=== PATIENT | female | born 1990 | race African-American/Black ===

== ENCOUNTER 2019-12-21 07:45 | Inpatient (IN) | payer BC ==
--- NOTE | 2019-12-21 08:50 | HP ---
Past Medical History - Primary Care Physician PCP:: Symone De Anda - Admission Chief Complaint: none History of Present Illness: pt presents for scheduled iol. no complaints. pnc signif for + ontd screen had genetic counseling. declined further chelsey claudiag. had mfm sono w Nl priyanka scan maternal obesity History Source: Patient Limitations to Obtaining History: No Limitations - Past Medical History ...: 2 ...Para: 0 ...Induced : 1 ...EDC by Sono: 12/21/19 - Past Surgical History Hx Myomectomy: No Hx Transabdominal Cerclage: No Additional Surgical History: vtop - Smoking History Have you smoked in the past 12 months: No - Alcohol/Substance Use Hx Alcohol Use: No History of Substance Use: reports: None Home Medications - Allergies Allergies/Adverse Reactions: Allergies Allergy/AdvReac Type Severity Reaction Status Date / Time No Known Allergies Allergy Verified 12/21/19 08:48 - Home Medications Home Medications: Ambulatory Orders Prenat 115/Iron Fum/Folic/Dss [ 19 Tablet] 1 each PO DAILY 12/21/19 Review of Systems Findings/Remarks: see hpi Physical Exam - Maternity Constitutional: Yes: Well Nourished, No Distress, Calm Neck: Yes: Rigid Lungs: Clear to auscultation - Abdominal Exam/OB Number of Fetuses: Single Presentation: Vertex Contractions: Yes Regularity: Irregular Intensity: Unaware Monitor Mode: External Heart Rate (range): 125 Accelerations: Uniform Decelerations: None - Vaginal Exam/OB Vaginal Bleeding: No Speculum Exam: No Dilatation (cm): 1-2 Effacement (%): l/p - Physical Exam Musculoskeletal: Yes: WNL Extremities: Yes: WNL - Labs Lab Results: O pos Rubella: immune vdrl neg hbsag neg hiv neg gc neg chl neg gbs neg Hemorrhage Risk Assessment - Risk Factors Medium Risk Factors: Yes: Obesity (BMI >40) High Risk Factors: Yes: None Risk Score: 1 Risk Level: Medium Risk Problem List - Problems (1) 40 weeks gestation of Problems reviewed: Yes Code(s): Z3A.40 - 40 WEEKS GESTATION OF (2) Postmaturity , 40-42 weeks gestation Problems reviewed: Yes Code(s): O48.0 - POST-TERM Assessment/Plan iup at 40 weeks presents for scheduled iol efw [id number] admit to L&D monitor notify peds of inc risk ONTD of screening test antepartum due to unfavorable cervix, start with cervical ripening / cervidil
[2019-12-21 08:58] LABS: BASO % 0.3 % (0-2.0); EOS % 1.5 % (0-4.5); HEMATOCRIT 30.3 % (32.4-45.2); HEMOGLOBIN 10.6 GM/dL (10.7-15.3); LYMPH % 28.5 % (8-40); MCH 30.1 pg (25.7-33.7); MCHC 34.8 g/dl (32.0-36.0); MEAN CELL VOLUME 86.5 fl (80-96); MEAN PLT VOLUME 7.2 fl (7.5-11.1); MONO % 8.8 % (3.8-10.2); NEUT % 60.9 % (42.8-82.8); PLATELET COUNT 225 K/MM3 (134-434); RBC 3.51 M/mm3 (3.60-5.2); RDW 13.7 % (11.6-15.6); WHITE BLOOD COUNT 7.9 K/mm3 (4.0-10.0)
[2019-12-21 09:05] LABS: INR 0.92 (0.83-1.09); PROTHROMBIN TIME (PATIENT) 10.9 SEC (9.7-13.0)
[2019-12-21 09:08] LABS: ACTIVATED PTT 26.4 SECONDS (25.2-36.5)
[2019-12-21 09:22] LABS: BLOOD UREA NITROGEN 6.6 mg/dL (7-18); CALCIUM 8.8 mg/dL (8.5-10.1); CREATININE 0.8 mg/dL (0.55-1.3); POTASSIUM 3.9 mmol/L (3.5-5.1)
[2019-12-21] MEDS: DEXTROSE 5%-LACTATED RINGERS 1,000 ML IV SCH (09:30)
[2019-12-21 10:07] VITALS: BMI 36.6
[2019-12-21] MEDS ORDERED: DINOPROSTONE 10 MG VAGINAL SUPPOSITORY VG ONE ×2 (10:33→23:05)
--- NOTE | 2019-12-21 23:09 | PN ---
Progress Note (short form) - Note Progress Note: Patient without complaints cervidil #1 removed, cervidil #2 placed FHR 140, moderate variability, positive accelerations, no decelerations, cat1 [place]- q4-8 min VE-- ft/long/posterior anticipate vaginal delivery
[2019-12-22] MEDS ORDERED: BUTORPHANOL TARTRATE 1 MG/ML VIAL IVPB ONE (08:06)
[2019-12-22] MEDS ORDERED: BUTORPHANOL TARTRATE 2 MG/ML VIAL ONE (08:19)
[2019-12-22] MEDS ORDERED: PROMETHAZINE HCL 25 MG/1 ML VIAL ONE (08:19)
[2019-12-22 09:03] LABS: POC NITRAZINE NEG
[2019-12-22] MEDS ORDERED: PROMETHAZINE HCL 25 MG/1 ML VIAL IVPB ONE (09:15)
[2019-12-22] MEDS: DEXTROSE 5%-LACTATED RINGERS 1,000 ML IV SCH (12:00)
--- NOTE | 2019-12-22 12:22 | PN ---
Progress Note (short form) - Note Progress Note: Cervidil #2 removed VE /-1 posterior SROM category 1 tracing desires epidural
[2019-12-22] MEDS ORDERED: PCA PUMP NR ONE ×2 (12:39→22:02)
[2019-12-22] MEDS ORDERED: FENTANYL/BUPIVACAINE/NS/PF - PCEA - 50 ML DISP.SYRIN EP ONE (12:40)
[2019-12-22] MEDS ORDERED: NALOXONE HCL 0.4 MG/ML VIAL IVPUSH PRN (13:22)
[2019-12-22] MEDS ORDERED: BUPIVACAINE HCL/PF 0.25% (2.5MG/ML) 10 ML VIAL ONE (13:27)
[2019-12-22] MEDS ORDERED: FENTANYL/BUPIVACAINE/NS/PF - PCEA - 50 ML DISP.SYRIN EP SCH (13:30)
[2019-12-22] MEDS ORDERED: OXYTOCIN 30 UNITS in 0.9% NS 30 UNIT/500 ML INFUS.BAG IVPB SCH (15:00)
[2019-12-22] MEDS ORDERED: ELECTROLYTE-148 SOLN 1,000 ML IV SCH (15:00)
[2019-12-22] MEDS ORDERED: OXYTOCIN 30 UNITS in 0.9% NS 30 UNIT/500 ML INFUS.BAG IVPB ONE (15:09)
--- NOTE | 2019-12-22 16:08 | PN ---
Progress Note (short form) - Note Progress Note: Unchanged exam at 3pm VE 6/80/-1 posterior SROM category [address] start pitocin infusion
[2019-12-22] MEDS ORDERED: LIDOCAINE HCL 1% PRESERVATIVE FREE - 30ML VIAL ONE (18:15)
[2019-12-22] MEDS ORDERED: OXYTOCIN 20 UNITS in 0.9% NS 20 UNIT/1,000 ML INFUS.BAG IV ONE (18:15)
--- NOTE | 2019-12-22 18:21 | PN ---
Progress Note (short form) - Note Progress Note: VE fully dilated SROM category [address] on pitocin infusion
[2019-12-22] MEDS ORDERED: BENZOCAINE 20% 57 GM BOTTLE TP PRN (20:29)
[2019-12-22] MEDS ORDERED: BENZOCAINE 28 GM HEMORRHOIDAL OINTMENT TP PRN (20:29)
[2019-12-22] MEDS ORDERED: WITCH HAZEL 50% (TUCKS) 40 PAD/JAR PAD TP PRN (20:29)
[2019-12-22] MEDS ORDERED: BISACODYL 10 MG SUPP.RECT RC PRN (20:29)
[2019-12-22] MEDS ORDERED: METHYLERGONOVINE MALEATE 0.2 MG/1 ML AMP IM PRN (20:29)
--- NOTE | 2019-12-22 20:29 | PN ---
Delivery - Delivery Vaginal Delivery: Spontaneous Type of Anesthesia: Epidural Episiotomy/Laceration: Right Mediolateral EBL (cc): 500 (Repair done with 2-0 chromic. Tight nuchal cord.) Delivery, Single - Stages of Labor Placenta: Yes: Spontaneous - Condition of Gender: Female Position: OA - 1 Minute Total Score: 8 5 Minutes Total Score: 9 - Feeding Plan Initial Plan: Exclusive throughout hospitalization
[2019-12-22] MEDS ORDERED: OXYTOCIN 20 UNITS in 0.9% NS 20 UNIT/1,000 ML INFUS.BAG IV SCH (20:30)
[2019-12-22 21:08] LABS: CORD BASE EXCESS -8.6 mmol/L (0-2); CORD PCO2 36.1 mmHg (30-78); CORD pH 7.291 (7.14-7.44)
[2019-12-22 21:09] LABS: CORD BASE EXCESS -10.7 mmol/L (0-2); CORD HCO3 16.7 mmHg (20-29); CORD PCO2 42.6 mmHg (30-78); CORD pH 7.212 (7.14-7.44)
[2019-12-22] MEDS: ACETAMINOPHEN 325 MG TABLET (FP) PO PRN (22:49)
[2019-12-22] MEDS: IBUPROFEN 600 MG TABLET (FP) PO PRN (22:50)
[2019-12-23 08:25] LABS: BASO % 0.1 % (0-2.0); EOS % 0.2 % (0-4.5); HEMATOCRIT 26.1 % (32.4-45.2); HEMOGLOBIN 8.9 GM/dL (10.7-15.3); LYMPH % 15.6 % (8-40); MCH 29.9 pg (25.7-33.7); MCHC 34.1 g/dl (32.0-36.0); MEAN CELL VOLUME 87.7 fl (80-96); MEAN PLT VOLUME 7.8 fl (7.5-11.1); MONO % 9.5 % (3.8-10.2); NEUT % 74.6 % (42.8-82.8); PLATELET COUNT 187 K/MM3 (134-434); RBC 2.98 M/mm3 (3.60-5.2); RDW 13.9 % (11.6-15.6); WHITE BLOOD COUNT 14.7 K/mm3 (4.0-10.0)
--- NOTE | 2019-12-23 13:26 | PN ---
Post Progress Note Post Day: 1 Type of Delivery: Vital Signs: Vital Signs Temperature 98.4 F 12/23/19 09:00 Pulse Rate 109 H 12/23/19 09:00 Respiratory Rate 18 12/23/19 09:00 Blood Pressure 111/64 12/23/19 09:00 O2 Sat by Pulse Oximetry (%) 97 12/22/19 22:00 Breast Exam: Yes: Soft Uterus: Yes: Fundus Firm Abdomen/GI: Yes: Abdomen soft Lochia: Yes: Rubra Lochia, amount: Moderate Extremities: Yes: Calves non-tender Perineum: Yes: Episiotomy Activity: Ambulating - Labs Labs: CBC WBC 14.7 K/mm3 (4.0-10.0) H 12/23/19 07:59 RBC 2.98 M/mm3 (3.60-5.2) L 12/23/19 07:59 Hgb 8.9 GM/dL (10.7-15.3) L 12/23/19 07:59 Hct 26.1 % (32.4-45.2) L 12/23/19 07:59 MCV 87.7 fl (80-96) 12/23/19 07:59 MCH 29.9 pg (25.7-33.7) 12/23/19 07:59 MCHC 34.1 g/dl (32.0-36.0) 12/23/19 07:59 RDW 13.9 % (11.6-15.6) 12/23/19 07:59 Plt Count 187 K/MM3 (134-434) 12/23/19 07:59 MPV 7.8 fl (7.5-11.1) 12/23/19 07:59 Absolute Neuts (auto) 10.9 K/mm3 (1.5-8.0) H 12/23/19 07:59 Neutrophils % 74.6 % (42.8-82.8) D 12/23/19 07:59 Lymphocytes % 15.6 % (8-40) D 12/23/19 07:59 Monocytes % 9.5 % (3.8-10.2) 12/23/19 07:59 Eosinophils % 0.2 % (0-4.5) D 12/23/19 07:59 Basophils % 0.1 % (0-2.0) 12/23/19 07:59 Nucleated RBC % 0 % (0-0) 12/23/19 07:59
[2019-12-23] MEDS ORDERED: SENNOSIDES/DOCUSATE COMBO (SENNA PLUS) TABLET (UD) PO PRN (22:00)
[2019-12-23] MEDS: IBUPROFEN 600 MG TABLET (FP) PO PRN (22:07)
[2019-12-23] MEDS: ACETAMINOPHEN 325 MG TABLET (FP) PO PRN (22:08)
--- NOTE | 2019-12-24 10:15 | DS ---
Physical Exam-TECHNICAL EXPERT Vital Signs: Vital Signs Temperature 98.7 F 12/23/19 22:00 Pulse Rate 81 12/23/19 22:00 Respiratory Rate 18 12/23/19 22:00 Blood Pressure 120/62 12/23/19 22:00 O2 Sat by Pulse Oximetry (%) 99 12/23/19 14:00 Constitutional: Yes: Well Nourished, No Distress, Calm Cardiovascular: Yes: Regular Rate and Rhythm Respiratory: Yes: CTA Bilaterally Gastrointestinal: Yes: Normal Bowel Sounds, Soft Pelvis: Yes: WNL External Genitalia: Yes: Normal Internal Exam Deferred: Yes ....Post : Yes: Uterus firm, Uterus non-tender Breast(s): Yes: WNL Musculoskeletal: Yes: WNL Extremities: Yes: WNL Edema: No Neurological: Yes: Alert, Oriented ...Motor Strength: WNL Psychiatric: Yes: Alert, Oriented Labs: CBC, BMP 12/23/19 07:59 12/21/19 08:40 Delivery - Delivery Vaginal Delivery: Spontaneous Type of Anesthesia: Epidural Episiotomy/Laceration: Right Mediolateral EBL (cc): 500 (Repair done with 2-0 chromic. 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 Gender: Female Weight: 3.26 kg Position: OA Total Hours ROM (Hrs/Mins): 7hr/28min - 1 Minute Total Score: 8 5 Minutes Total Score: 9 - [place] Feeding Plan Initial Plan: Exclusive throughout hospitalization Discharge Summary Problems reviewed: Yes Reason For Visit: INDUCTION OF LABOR Current Active Problems 40 weeks gestation of (Acute) Postmaturity , 40-42 weeks gestation (Acute) Plan of Treatment: discharge home, f/u for PP visit in 2-3 weeks, continue PNV, iron, colace PRN, pelvic rest x 6 weeks, preeclampsia and PPH precautions discussed Condition: Good - Instructions Diet, Activity, Other Instructions: regular diet Referrals: Symone De Anda MD [Staff Physician] - Disposition: HOME - Home Medications Comprehensive Discharge Medication List: Ambulatory Orders Prenat 115/Iron Fum/Folic/Dss [ 19 Tablet] 1 each PO DAILY 12/21/19
[2019-12-24 12:25] VITALS: BP 123/75; PULSE 79; TEMP 98.1
== END 2019-12-24 14:30 | disposition home or self-care (01) | DRG 807 ==
LOC: JLDR 07:45 → J3W 12-22 22:30
PROVIDERS: ADMIT Obstetrics & Gynecology; ATTEND Obstetrics & Gynecology
PROC: 3E0P7VZ Introduction of Hormone into Female Reproductive, Via Natural or Artificial Opening (ICD-10-PCS; principal; 2019-12-21)
PROC: 10E0XZZ Delivery of Products of Conception, External Approach (ICD-10-PCS; 2019-12-22)
PROC: 0W8NXZZ Division of Female Perineum, External Approach (ICD-10-PCS; 2019-12-22)
DX: O48.0 Post-term pregnancy (principal); Z37.0 Single live birth; Z3A.40 40 weeks gestation of pregnancy; O99.214 Obesity complicating childbirth; E66.9 Obesity, unspecified; O69.1XX0 Labor and delivery complicated by cord around neck, with compression, not applicable or unspecified
CPT/HCPCS: 36415; 36600; 59409; 80048; 82803; 83986-QW; 85025; 85610; 85730; 86780; 86850; 86900; 86901; 87389; U0003